=== PATIENT | male | born 1970 ===

== ENCOUNTER → 2020-10-03 15:00 | Outpatient (CLI) | payer OTHER | END | disposition home or self-care (01) | LOC: PPH VACUNA 15:00 | DX: Z23 Encounter for immunization (principal) ==

== ENCOUNTER 2020-10-24 14:43 | Outpatient (CLI) | payer OTHER | END 2020-10-24 14:44 | disposition home or self-care (01) | LOC: PPH VACUNA 14:43 | DX: Z23 Encounter for immunization (principal) ==